=== PATIENT | male | born 1975 | race Caucasian/White ===

== ENCOUNTER 2017-11-17 13:42 | Emergency (ER) | payer OTHER ==
[2017-11-17 14:05] VITALS: BP 138/76
--- NOTE | 2017-11-17 14:32 | UC ---
Lower Extremity/Ankle HPI - HPI Summary HPI Summary: Pt c/o pain in left toes 3-5 and distal end of metatarsals after slipping on wet floor at home and hitting left foot and toes against wall yesterday. - History of Current Complaint Chief Complaint: UCLowerExtremity Stated Complaint: LEFT FOOT/TOE COMPLAINT Time Seen by Provider: 11/17/17 14:07 Hx Obtained From: Patient Onset/Duration: Sudden Onset, Still Present Severity Initially: Moderate Severity Currently: Moderate Pain Intensity: 6 Aggravating Factor(s): Standing, Ambulation Alleviating Factor(s): Rest, Elevation Able to Bear Weight: Yes - Risk Factors Gout Risk Factors: Age Over 40, Male DVT Risk Factors: Negative Septic Arthritis Risk Factor: Negative - Allergies/Home Medications Allergies/Adverse Reactions: Allergies Allergy/AdvReac Type Severity Reaction Status Date / Time acetaminophen AdvReac See Comment Verified 11/17/17 14:02 Home Medications: Home Medications NK [No Home Medications Reported] 11/17/17 [History Confirmed 11/17/17] PMH/Surg Hx/FS Hx/Imm Hx Previously Healthy: Yes - Surgical History Surgical History: Yes Surgery Procedure, Year, and Place: hernia repair 2016 - Family History Known Family History: Positive: Cardiac Disease - Social History Occupation: Employed Full-time Lives: With Family Alcohol Use: Rare Substance Use Type: None Smoking Status (MU): Former Smoker Have You Smoked in the Last Year: No Review of Systems Constitutional: Negative Skin: Bruising - left toes, 2-5 Eyes: Negative ENT: Negative Respiratory: Negative Cardiovascular: Negative Gastrointestinal: Negative Genitourinary: Negative Motor: Decreased ROM - left foot and toes 2-5 Neurovascular: Negative Musculoskeletal: Arthralgia, Decreased ROM, Myalgia Neurological: Negative Psychological: Negative Is Patient Immunocompromised?: No All Other Systems Reviewed And Are Negative: Yes Physical Exam Triage Information Reviewed: Yes Appearance: Well-Appearing Vital Signs: Initial Vital Signs Temp 99.2 F 11/17/17 13:58 Pulse 76 11/17/17 13:58 Resp 15 11/17/17 13:58 BP 138/76 11/17/17 13:58 Pulse Ox 98 11/17/17 13:58 Vital Signs Reviewed: Yes Eye Exam: Normal ENT: Positive: Hearing grossly normal Respiratory: Positive: No respiratory distress Musculoskeletal Exam: Other Musculoskeletal: Positive: Strength Limited @ - left toes 2-5,, ROM Limited @, Edema @ - left distal foot and toes 2-5 Neurological Exam: Normal Psychological Exam: Normal Skin Exam: Normal Diagnostics - Radiology No standard instances Radiology Interpretation Completed By: Radiologist - IMPRESSION: Potential although not definitive nondisplaced fracture at the proximal metaphysis diaphysis junction of the second proximal phalanx. Correlate with clinical assessment. Lower Extremity Course/Dx - Differential Dx/Diagnosis Differential Diagnosis/HQI/PQRI: Contusion, Fracture (Closed), Sprain, Strain Provider Diagnoses: left second toe fracture Discharge - Sign-Out/Discharge Documenting (check all that apply): Discharge/Admit/Transfer - Discharge Plan Condition: Stable Disposition: HOME Patient Education Materials: Toe Fracture (ED), R.I.C.E. Treatment (ED) Referrals: Bird Tavares MD [Medical Doctor] - If Needed JESSE Horner [Primary Care Provider] - If Needed - Billing Disposition and Condition Condition: STABLE Disposition: HOME
--- NOTE | 2017-11-17 14:36 | RAD ---
Indication: Pain following injury to the LEFT second and third toes. Swelling and bruising. Comparison: No relevant prior exams available on the [facility] for comparison. Technique: AP, lateral, and oblique views LEFT foot. Report: On the oblique view there is subtle cortical contour irregularity at the lateral margin of the proximal metaphysis diaphysis junction of the second proximal phalanx which may reflect a nondisplaced fracture. Normal articular alignment. Mild soft tissue swelling about the forefoot. IMPRESSION: Potential although not definitive nondisplaced fracture at the proximal metaphysis diaphysis junction of the second proximal phalanx. Correlate with clinical assessment.
== END 2017-11-17 15:00 | disposition home or self-care (01) ==
LOC: UCCORT 13:42
DX: S92.512A Displaced fracture of proximal phalanx of left lesser toe(s), initial encounter for closed fracture (principal); W01.198A Fall on same level from slipping, tripping and stumbling with subsequent striking against other object, initial encounter; Y93.9 Activity, unspecified; Y92.9 Unspecified place or not applicable; Z88.6 Allergy status to analgesic agent; Z87.891 Personal history of nicotine dependence
CPT/HCPCS: 99213; G0463

== ENCOUNTER 2019-09-25 05:47 | Day surgery (SDC) | payer BC ==
[~2019-09-25 05:47] MED LIST: Buffered Lidocaine 1% SYRIN* 1 ML/SYRINGE INTRADERM ONE
[2019-09-25] MEDS ORDERED: Famotidine IV* 10 MG/ML 2 ML (20 mg) IV ONE (06:00)
[2019-09-25] MEDS ORDERED: Lactated Ringers 1000 ML Bag* 1,000 ML IV SCH (06:00)
[2019-09-25] MEDS ORDERED: ceFAZolin 2 GM PREMIX in ORs 2 GM/50 ML BAG ONE (06:40)
[2019-09-25] MEDS ORDERED: Buffered Lidocaine 1% SYRIN* 1 ML/SYRINGE INTRADERM ONE (06:40)
[2019-09-25] MEDS ORDERED: Famotidine IV* 10 MG/ML 2 ML (20 mg) ONE (06:40)
[2019-09-25] MEDS ORDERED: Dexamethasone IV* 4 MG/ML 1 ML (4 MG) ONE (07:14)
[2019-09-25] MEDS ORDERED: Ketorolac INJ* 30 MG/ML 1 ML VIAL ONE (07:14)
[2019-09-25] MEDS ORDERED: Propofol* 10 MG/ML 20 ML BTL ONE ×2 (07:14→08:15)
[2019-09-25] MEDS ORDERED: Ondansetron INJ* 2 MG/ML VIAL ONE (07:14)
[2019-09-25] MEDS ORDERED: fentaNYL* 50 MCG/ML 2 ML VIAL (100 MCG VIAL) ONE (07:14)
[2019-09-25] MEDS ORDERED: KETAMINE HCL* 50 MG/ML 10 ML VIAL ONE (07:14)
[2019-09-25] MEDS ORDERED: Lidocaine 2% PF * 5 ML VIAL ONE (07:14)
[2019-09-25] MEDS ORDERED: Midazolam* 1 MG/ML 10 ML VIAL (10 MG) ONE (07:15)
[2019-09-25] MEDS ORDERED: Bupivacaine 0.5%* 50 ML MDV VIAL ONE (07:29)
[2019-09-25] MEDS ORDERED: Lidocaine 2% PF* 10 ML AMP ONE (07:42)
[2019-09-25] MEDS ORDERED: Ondansetron INJ* 2 MG/ML VIAL IV PRN (08:05)
[2019-09-25] MEDS ORDERED: oxyCODONE TAB* 5 MG TAB PO PRN (08:05)
[2019-09-25] MEDS ORDERED: fentaNYL* 50 MCG/ML 2 ML VIAL (100 MCG VIAL) IV PRN (08:05)
[2019-09-25] MEDS ORDERED: Naloxone* 0.4 MG/ML 1 ML VIAL IV PRN (08:05)
[2019-09-25 10:30] VITALS: BP 148/104
--- NOTE | 2019-09-25 14:29 | OP ---
DATE OF OPERATION: 09/25/19 - [facility] DATE OF : 77 ATTENDING SURGEON: Sathya Turner MD THREAD SINGER: Kaleb Gutierrez PA-C PRE-OP DIAGNOSES: 1. Left fixed hammertoe. 2. Prominent metatarsophalangeal joint. POST-OP DIAGNOSES: 1. Left fixed hammertoe. 2. Prominent metatarsophalangeal joint. OPERATIVE PROCEDURE: PIP resection arthroplasty and shortening osteotomy of second metatarsal. DESCRIPTION OF PROCEDURE: The patient was taken to the operating room where a transverse elliptical incision was made over the dorsum of the PIP joint #2. We incised the collateral ligaments to allow visualization of the condyles which were then removed with the microsagittal saw. This corrected the hammertoe deformity. We then opened up curvilinear with longitudinal incision just medial to the second MTP joint. Capsulotomy was performed to allow visualization of the entire metatarsal head. We released the medial collateral ligament as well. The osteotomy was then performed with the microsagittal saw from distal dorsal to proximal plantar. A double cut was made to remove about 2 to 3 mm bone wafer. We then translated metatarsal head proximally, drilled a supervising airplane pilot hole with a small smooth C-wire, and then introduced the larger twist off screw from the Arthrex 2.4 kit. Unfortunately, the bridge at this point broke, so we altered the fixation strategy with a T-plate. We fashioned a 2.4 mm T-plate to fit the dorsum of the osteotomy fixing this with appropriate sized cortical screws. Excellent fixation alignment was obtained. We then pinned the PIP joint longitudinally with a 0.062 C- wire and closed the subcu tissue with 3-0 Monocryl, nylon for the skin and a compression dressing. [id number]/[facility] #: [id number] [facility] CENTERLeeann
== END 2019-09-25 10:30 | disposition home or self-care (01) ==
LOC: OR 05:47
PROVIDERS: ATTEND Orthopaedic Surgery
DX: M20.42 Other hammer toe(s) (acquired), left foot (principal); M21.6X2 Other acquired deformities of left foot; Z87.891 Personal history of nicotine dependence
CPT/HCPCS: 76000; 88304; 88311; C1713; C1776; J0690; J1100; J1885; J2001; J2250; J2405; J2704; J3010; J3490